=== PATIENT | female | born 1940 | race Caucasian/White ===

== ENCOUNTER 2023-06-16 18:57 | Inpatient (IN) | payer MEDICARE, OTHER ==
[2023-06-16] MEDS ORDERED: fentaNYL 50 mcg/mL 1 mL Vial ONE (19:19)
[2023-06-16] MEDS ORDERED: Ondansetron PF 4 MG/2 ML Vial IVP PRN (19:51)
[2023-06-16] MEDS ORDERED: Dextrose 5% in Water 1,000 ML IV PRN (19:51)
[2023-06-16] MEDS ORDERED: HumaLOG 300 UNITS/3 ML VIAL SC PRN (19:51)
[2023-06-16] MEDS ORDERED: Dextrose 50% Abboject 50 ML SYRINGE SLOW IVP PRN (19:51)
[2023-06-16] MEDS ORDERED: Acetaminophen 325 MG TAB PO PRN (19:51)
[2023-06-16] MEDS ORDERED: Glucagon 1 MG/ML KIT IM PRN (19:51)
[2023-06-16] MEDS ORDERED: hydrALAZINE 20 MG/ML VIAL SLOW IVP PRN (19:51)
[2023-06-16 20:25] LABS: #Basophils 0.1 thou/uL (0.0-0.2); #Eosinphils 0.1 thou/uL (0.0-0.7); #Monocytes 0.4 thou/uL (0.11-0.59); %Basophils 0.7 % (0.0-1.0); %Eosinophils 1.3 % (0.0-10.0); %Lymphocytes 12.8 % (21.0-51.0); %Monocytes 5.4 % (0.0-10.0); %Neutrophils 79.1 % (42.0-75.0); Hematocrit 37.7 % (36.0-47.0); Mean Corpuscular HGB CONC 31.8 g/dL (32.0-36.0); Mean Corpuscular Hemoglobin 29.2 pg (27.0-31.0); Mean Corpuscular Volume 91.7 fl (78.0-98.0); Mean Platelet Volume 9.8 fL (7.4-10.4); Platelet Count 209 10x3/uL (130-400); RBC Distribution Width 12.7 % (11.5-14.5); Red Blood Cell (RBC) Count 4.11 mill/uL (4.20-5.40); White Blood Cell (WBC) Count 7.6 10x3/uL (4.8-10.8)
[2023-06-16 20:26] LABS: Bacteria/HPF None Seen HPF (None Seen); Bilirubin Negative (Negative); Blood, Urine Negative (Negative); CAUTI Indications for Culture Alt mental st,lethar; Clarity Clear (Clear); Glucose, Urine (Dipstick) Normal (Negative); Ketone, Urine Negative (Negative); Leukocyte Negative Leu/uL (Negative); Nitrite Negative (Negative); Protein, Urine (Dipstick) 10 mg/dL (Neg-Trace); RBC/HPF 0-3 HPF (0-3); Specific Gravity, Urine 1.024 (1.002-1.036); Squamous Epithelial 0-3 HPF (0-3); Urobilinogen Normal mg/dL (Less than 2); pH, Urine 5.5 (5.0-9.0)
[2023-06-16 20:27] LABS: Urine Culture Reflex No No
[2023-06-16 20:30] LABS: ALT (SGPT) 9 U/L (8-55); AST (SGOT) 14 U/L (5-34); Albumin 3.8 g/dL (3.4-4.8); Alkaline Phosphatase 62 U/L (40-110); Anion Gap 11 mmol/L (10-20); BUN (Urea Nitrogen) 18 mg/dL (9.8-20.1); Bilirubin, Total 0.3 mg/dL (0.2-1.2); Calc. Creatinine Clearance 0 mL/min (70-130); Calcium 8.7 mg/dL (7.8-10.44); Carbon Dioxide 26 mmol/L (23-31); Chloride 109 mmol/L (98-107); Estimated GFR 53; Globulin 2.4 g/dL (2.4-3.5); Glucose 120 mg/dL (83-110); Protein, Total 6.2 g/dL (5.8-8.1); Sodium 141 mmol/L (136-145)
[2023-06-16] MEDS ORDERED: TETANUS, DIPHTHERIA TOX,ADULT (TDVAX) 0.5 ML VIAL IM ONE (21:00)
[2023-06-16] MEDS: traMADol HCl 50 MG TAB PO PRN (22:11)
[2023-06-16] MEDS: Morphine 2 MG/ML VIAL SLOW IVP PRN (22:13)
[2023-06-16 23:31] VITALS: BMI 29.0
[2023-06-17] MEDS: Morphine 2 MG/ML VIAL SLOW IVP PRN ×3 (02:35→10:51)
[2023-06-17] MEDS: Sodium Chloride 0.9% 1,000 ML IV SCH ×2 (02:36→09:30)
[2023-06-17] MEDS: traMADol HCl 50 MG TAB PO PRN (03:53)
[2023-06-17 08:14] LABS: #Monocytes 0.4 thou/uL (0.11-0.59); #Neutrophils 5.7 thou/uL (1.40-6.50); %Basophils 0.4 % (0.0-1.0); %Eosinophils 0.4 % (0.0-10.0); %Lymphocytes 13.2 % (21.0-51.0); %Monocytes 5.9 % (0.0-10.0); %Neutrophils 79.7 % (42.0-75.0); Hematocrit 35.3 % (36.0-47.0); Hemoglobin 11.2 g/dL (12.0-16.0); Mean Corpuscular HGB CONC 31.7 g/dL (32.0-36.0); Mean Corpuscular Hemoglobin 29.1 pg (27.0-31.0); Mean Corpuscular Volume 91.7 fl (78.0-98.0); Mean Platelet Volume 9.8 fL (7.4-10.4); Platelet Count 172 10x3/uL (130-400); RBC Distribution Width 12.9 % (11.5-14.5); Red Blood Cell (RBC) Count 3.85 mill/uL (4.20-5.40); White Blood Cell (WBC) Count 7.1 10x3/uL (4.8-10.8)
[2023-06-17 08:46] LABS: Glucose 119 mg/dL (83-110)
[2023-06-17 08:57] LABS: Anion Gap 11 mmol/L (10-20); BUN (Urea Nitrogen) 17 mg/dL (9.8-20.1); Calc. Creatinine Clearance 61 mL/min (70-130); Calcium 8.3 mg/dL (7.8-10.44); Carbon Dioxide 26 mmol/L (23-31); Chloride 109 mmol/L (98-107); Estimated GFR 72; Glucose 119 mg/dL (83-110); Potassium 4.8 mmol/L (3.5-5.1); Sodium 141 mmol/L (136-145)
[2023-06-17] MEDS ORDERED: FLU VACC QS2023(65UP)/MF59C/PF 60 MCG/0.5 ML SYRINGE IM ONE (09:00)
[2023-06-17] MEDS: Famotidine/PF 20 mg/2ml Vial SLOW IVP SCH (09:22)
[2023-06-17] MEDS ORDERED: traMADol HCl 50 MG TAB PO PRN (09:39)
[2023-06-17] MEDS ORDERED: Acetaminophen 500 MG TAB PO SCH ×2 (10:00→12:00)
[2023-06-17] MEDS ORDERED: traMADol HCl 50 MG TAB PO SCH (12:00)
[2023-06-17] MEDS: Acetaminophen 325 MG TAB PO SCH ×2 (12:30→14:19)
[2023-06-17 13:58] LABS: Glucose 99 mg/dL (83-110)
[2023-06-17] MEDS ORDERED: CEFAZOLIN 2 GM in Sodium Chloride 0.9% 100 ML IVPB SCH (14:00)
[2023-06-17] MEDS: Acetaminophen/Codeine 30-300mg Tablet PO SCH ×2 (14:18→17:52)
[2023-06-17] MEDS ORDERED: CEFAZOLIN 2 GM VIAL ONE (16:57)
[2023-06-17] MEDS ORDERED: Sodium Chloride 0.9% 100 ML ONE (16:58)
[2023-06-17] MEDS ORDERED: fentaNYL PF 100 MCG/2 ML SYRINGE ONE (18:08)
[2023-06-17] MEDS ORDERED: PROPOFOL 20 ML ONE (18:08)
[2023-06-17] MEDS ORDERED: Rocuronium Bromide 10 MG/ML (10ML VIAL) ONE (18:09)
[2023-06-17] MEDS ORDERED: Ondansetron PF 4 MG/2 ML Vial ONE (18:37)
[2023-06-17] MEDS ORDERED: SUGAMMADEX SODIUM 200 MG/2 ML VIAL ONE (18:37)
[2023-06-17] MEDS ORDERED: Dexamethasone 4 mg/ml Vial ONE (18:37)
[2023-06-17] MEDS ORDERED: Morphine Sulfate 2 MG/ML SYRINGE SLOW IVP PRN (19:10)
[2023-06-17] MEDS ORDERED: Ondansetron HCl/PF 4 MG/2 ML Vial IVP PRN (19:10)
[2023-06-17] MEDS: lamoTRIgine 100 MG TAB PO SCH (20:47)
[2023-06-17] MEDS: lamoTRIgine 25 MG TAB PO SCH (20:47)
[2023-06-17] MEDS: Senokot S 8.6-50 MG TAB PO SCH (20:48)
[2023-06-18] MEDS: CEFAZOLIN 2 GM in Sodium Chloride 0.9% 100 ML IVPB SCH ×3 (00:30→17:35)
[2023-06-18] MEDS: Acetaminophen/Codeine 30-300mg Tablet PO SCH ×2 (00:30→05:30)
[2023-06-18] MEDS: Acetaminophen 325 MG TAB PO SCH ×2 (00:42→05:30)
[2023-06-18 06:42] LABS: #Monocytes 0.6 thou/uL (0.11-0.59); %Basophils 0.5 % (0.0-1.0); %Eosinophils 0.1 % (0.0-10.0); %Lymphocytes 9.9 % (21.0-51.0); %Monocytes 7.4 % (0.0-10.0); %Neutrophils 81.5 % (42.0-75.0); Hematocrit 33.2 % (36.0-47.0); Hemoglobin 10.7 g/dL (12.0-16.0); Mean Corpuscular HGB CONC 32.2 g/dL (32.0-36.0); Mean Corpuscular Hemoglobin 29.2 pg (27.0-31.0); Mean Corpuscular Volume 90.5 fl (78.0-98.0); Mean Platelet Volume 9.9 fL (7.4-10.4); Platelet Count 145 10x3/uL (130-400); RBC Distribution Width 12.4 % (11.5-14.5); Red Blood Cell (RBC) Count 3.67 mill/uL (4.20-5.40); White Blood Cell (WBC) Count 8.6 10x3/uL (4.8-10.8)
[2023-06-18 06:50] LABS: Hemoglobin A1c 5.3 % (4.0-6.0)
[2023-06-18 07:04] LABS: ALT (SGPT) 8 U/L (8-55); AST (SGOT) 12 U/L (5-34); Albumin 3.3 g/dL (3.4-4.8); Alkaline Phosphatase 44 U/L (40-110); Anion Gap 12 mmol/L (10-20); BUN (Urea Nitrogen) 16 mg/dL (9.8-20.1); Bilirubin, Direct 0.2 mg/dL (0.1-0.3); Bilirubin, Total 0.3 mg/dL (0.2-1.2); Calc. Creatinine Clearance 58 mL/min (70-130); Calcium 8.2 mg/dL (7.8-10.44); Carbon Dioxide 23 mmol/L (23-31); Chloride 106 mmol/L (98-107); Estimated GFR 68; Glucose 119 mg/dL (83-110); Potassium 4.5 mmol/L (3.5-5.1); Protein, Total 5.4 g/dL (5.8-8.1); Sodium 136 mmol/L (136-145)
[2023-06-18] MEDS: Famotidine/PF 20 mg/2ml Vial SLOW IVP SCH (08:39)
[2023-06-18] MEDS: lamoTRIgine 100 MG TAB PO SCH ×2 (08:39→20:13)
[2023-06-18] MEDS: Senokot S 8.6-50 MG TAB PO SCH ×2 (08:39→20:13)
[2023-06-18] MEDS: lamoTRIgine 25 MG TAB PO SCH ×2 (08:39→20:13)
[2023-06-18] MEDS: Ezetimibe 10 MG TAB PO SCH (08:39)
[2023-06-18] MEDS: Lisinopril 20 MG TAB PO SCH (08:39)
[2023-06-18] MEDS: Citalopram 20 MG TAB PO SCH (08:39)
[2023-06-18] MEDS: Amlodipine 10 MG TAB PO SCH (08:39)
[2023-06-18] MEDS: busPIRone HCl 10 MG TAB PO SCH (08:39)
[2023-06-18] MEDS: Polyethylene Glycol 3350 17 GM Packet PO SCH (08:40)
[2023-06-18] MEDS: Ibuprofen 200 MG TAB PO SCH ×2 (09:46→17:35)
[2023-06-18] MEDS: Cyclobenzaprine 10 MG TAB PO PRN (09:47)
[2023-06-18] MEDS: Acetaminophen 500 MG TAB PO SCH ×2 (11:27→17:36)
[2023-06-18] MEDS ORDERED: Morphine 2 MG/ML VIAL SLOW IVP PRN (15:47)
[2023-06-19] MEDS: Acetaminophen 500 MG TAB PO SCH ×4 (01:17→18:05)
[2023-06-19] MEDS: Ibuprofen 200 MG TAB PO SCH ×2 (01:17→09:42)
[2023-06-19 05:43] LABS: Hematocrit 30.1 % (36.0-47.0); Hemoglobin 9.4 g/dL (12.0-16.0)
[2023-06-19 06:11] LABS: Anion Gap 8 mmol/L (10-20); BUN (Urea Nitrogen) 21 mg/dL (9.8-20.1); Calc. Creatinine Clearance 44 mL/min (70-130); Calcium 8.1 mg/dL (7.8-10.44); Carbon Dioxide 29 mmol/L (23-31); Chloride 107 mmol/L (98-107); Estimated GFR 49; Glucose 87 mg/dL (83-110); Magnesium 2.1 mg/dL (1.6-2.6); Potassium 4.1 mmol/L (3.5-5.1); Sodium 140 mmol/L (136-145)
[2023-06-19] MEDS ORDERED: Aspirin 81 mg Enteric Coated Tablet PO SCH (09:00)
[2023-06-19] MEDS: Citalopram 20 MG TAB PO SCH (09:38)
[2023-06-19] MEDS: lamoTRIgine 25 MG TAB PO SCH (09:38)
[2023-06-19] MEDS: lamoTRIgine 100 MG TAB PO SCH (09:38)
[2023-06-19] MEDS: Lisinopril 20 MG TAB PO SCH (09:38)
[2023-06-19] MEDS: Ezetimibe 10 MG TAB PO SCH (09:39)
[2023-06-19] MEDS: busPIRone HCl 10 MG TAB PO SCH (09:39)
[2023-06-19] MEDS: Polyethylene Glycol 3350 17 GM Packet PO SCH (09:40)
[2023-06-19] MEDS: Famotidine/PF 20 mg/2ml Vial SLOW IVP SCH (09:40)
[2023-06-19] MEDS: Senokot S 8.6-50 MG TAB PO SCH (09:40)
[2023-06-19] MEDS: Amlodipine 10 MG TAB PO SCH (09:40)
[2023-06-19] MEDS ORDERED: Sodium Chloride 0.9% 500 ML IV SCH (10:45)
[2023-06-19] MEDS: Cyclobenzaprine 10 MG TAB PO PRN (12:30)
[2023-06-19 15:54] VITALS: BP 135/66; TEMP 98
== END 2023-06-19 19:25 | DRG 481 ==
LOC: EDBD 18:57 → ERS 18:57 → SJJU 20:05
PROVIDERS: ADMIT Surgery; ATTEND Surgery
PROC: 0T9B70Z Drainage of Bladder with Drainage Device, Via Natural or Artificial Opening (ICD-10-PCS; principal; 2023-06-16)
PROC: 0QS706Z Reposition Left Upper Femur with Intramedullary Internal Fixation Device, Open Approach (ICD-10-PCS; 2023-06-17)
DX: S72.142A Displaced intertrochanteric fracture of left femur, initial encounter for closed fracture (principal); N17.9 Acute kidney failure, unspecified; S52.502A Unspecified fracture of the lower end of left radius, initial encounter for closed fracture; W18.30XA Fall on same level, unspecified, initial encounter; Z91.041 Radiographic dye allergy status; Z88.8 Allergy status to other drugs, medicaments and biological substances; Z79.899 Other long term (current) drug therapy; Z79.82 Long term (current) use of aspirin; Z86.73 Personal history of transient ischemic attack (TIA), and cerebral infarction without residual deficits; Z96.651 Presence of right artificial knee joint; I10 Essential (primary) hypertension; S52.122A Displaced fracture of head of left radius, initial encounter for closed fracture; F03.90 Unspecified dementia, unspecified severity, without behavioral disturbance, psychotic disturbance, mood disturbance, and anxiety; Z98.890 Other specified postprocedural states
CPT/HCPCS: 36415; 36416; 51702; 71045; 80048; 80053; 80076; 81001; 83036; 83735; 85014; 85018; 85025; 86850; 86900; 86901; 93005; 96374; C1713; G0390; J1100; J2272; J2405; J2704; J3010; J3490; J7030; J7050; S0028